=== PATIENT | female | born 1970 | race African-American/Black ===

== ENCOUNTER 2024-09-09 22:57 | Emergency (ER) | payer OTHER, SELFPAY ==
[2024-09-09 23:00] VITALS: BP 140/84
[2024-09-10 00:57] VITALS: BMI 34.0
--- NOTE | 2024-09-10 00:59 | EDRN ---
Pt is 'stressed out' and says she has a habit of talking to herself which she is trying to break. Pt says it prevents her from being around people and she wants to be engaged and more trustful of people now. Pt here 'to talk to a professional' to
help her. Pt says she has never talked to a professional about this issue. 'it is draining and makes me depressed.' No SI/HI/AH/VH. Pt lives alone at present time.
[2024-09-10 01:02] VITALS: BP 104/62
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
--- NOTE | 2024-09-10 03:02 | EDRN ---
Spoke with pt who says she is agreeable to whatever crime prevention worker suggests (outpatient vs inpatient). loft worker informed and will go in to speak with pt about plan of care with Brittaney GAN
[2024-09-10 03:27] VITALS: BP 108/63
== END 2024-09-10 03:51 | disposition home or self-care (01) ==
LOC: EMR 22:57
PROVIDERS: EMERGENCY PHYSICIAN Student in an Organized Health Care Education/Training Program
DX: R45.851 Suicidal ideations (principal); F43.12 Post-traumatic stress disorder, chronic; I10 Essential (primary) hypertension; D64.9 Anemia, unspecified; F41.9 Anxiety disorder, unspecified; Z59.00 Homelessness unspecified; Z60.8 Other problems related to social environment
CPT/HCPCS: 99282

== ENCOUNTER 2024-10-03 09:40 | Emergency (ER) | payer OTHER, SELFPAY ==
[2024-10-03 09:42] VITALS: BP 129/80
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
== END 2024-10-03 14:13 | disposition home or self-care (01) ==
LOC: EMR 09:40
PROVIDERS: EMERGENCY PHYSICIAN Emergency Medicine
DX: F43.20 Adjustment disorder, unspecified (principal); I10 Essential (primary) hypertension; Z59.00 Homelessness unspecified; Z79.899 Other long term (current) drug therapy
CPT/HCPCS: 99282